=== PATIENT | female | born 1930 | race Caucasian/White ===

== ENCOUNTER → 2017-01-26 | Outpatient (CLI) | payer MEDICARE, OTHER ==
[~2017-01-26] MED LIST: 3N1 COMMODE MC; AMLO1CAP6 PO; ASPI-781 PO; BEN25 PO; BENA20TA65 PO; BISA10SU75 PR; CPM MC; DOCU-144 PO; NA P133E3 PR; OXYC-481 PO; PRA40 PO; Pantoprazole PO; RANI150T9 PO; TRAM50TA2 PO; WALK1EAC23 MC
--- NOTE | 2017-01-26 11:55 | RADRPT ---
PROCEDURE: XR left knee. CLINICAL INDICATION: Knee pain. TECHNIQUE: AP weightbearing, lateral weightbearing and sunrise views are available for review. COMPARISON: 05/22/2016 FINDINGS: There is a total knee replacement. There is no evidence of loosening of the prosthesis. There is no evidence of hardware failure. The osseous structures are normal in mineralization, architecture and alignment No acute fracture or dislocation is seen.No osseous lesions are identified. The soft tiss ues are unremarkable . IMPRESSION: Unremarkable total knee replacement. RPTAT: [facility] .Dylan Higuera MD, MD Date Time Electronically viewed and signed by .Dylan Higuera MD, MD on 01/26/2017 11:55 .B/
== END | disposition home or self-care (01) ==
LOC: HKI 10:52
PROVIDERS: ATTEND Orthopaedic Surgery
DX: Z47.89 Encounter for other orthopedic aftercare (principal); Z96.653 Presence of artificial knee joint, bilateral
CPT/HCPCS: 73562; G0463